=== PATIENT | female | born 1940 | race Caucasian/White ===

== ENCOUNTER 2018-08-21 13:03 | Emergency (ER) | payer MEDICARE, OTHER ==
--- NOTE | 2018-08-21 14:14 | RAD ---
4 views left knee. HISTORY: Left knee pain AP, lateral and both oblique views left knee obtained. 4 views left knee demonstrates no evidence of left knee fractures, subluxations or bony lesions. IMPRESSION: Normal 4 views left knee.
== END 2018-08-21 15:05 | disposition home or self-care (01) ==
LOC: ERS 13:03
DX: M70.52 Other bursitis of knee, left knee (principal); E03.9 Hypothyroidism, unspecified; K21.9 Gastro-esophageal reflux disease without esophagitis; Z79.899 Other long term (current) drug therapy; X50.1XXA Overexertion from prolonged static or awkward postures, initial encounter

== ENCOUNTER 2019-06-09 06:49 | Emergency (ER) | payer MEDICARE, OTHER ==
[2019-06-09] MEDS ORDERED: Ondansetron PF 4 MG/2 ML Vial ONE (07:34)
[2019-06-09 08:02] LABS: #Lymphocytes 0.9 thou/uL (1.20-3.40); #Monocytes 0.3 thou/uL (0.11-0.59); #Neutrophils 9.8 thou/uL (1.40-6.50); %Basophils 0.4 % (0.0-1.0); %Eosinophils 0.2 % (0.0-10.0); %Lymphocytes 7.7 % (21.0-51.0); %Monocytes 2.4 % (0.0-10.0); %Neutrophils 89.2 % (42.0-75.0); Hemoglobin 14.1 g/dL (12.0-16.0); Mean Corpuscular HGB CONC 33.6 g/dL (32.0-36.0); Mean Corpuscular Hemoglobin 30.9 pg (27.0-31.0); Mean Platelet Volume 7.4 fL (7.4-10.4); Platelet Count 240 thou/uL (130-400); RBC Distribution Width 12.3 % (11.5-14.5); Red Blood Cell (RBC) Count 4.56 mill/uL (4.20-5.40)
[2019-06-09 08:26] LABS: ALT (SGPT) 15 U/L (8-55); AST (SGOT) 23 U/L (5-34); Albumin 4.8 g/dL (3.4-4.8); Alkaline Phosphatase 71 U/L (40-110); Anion Gap 15 mmol/L (10-20); BUN (Urea Nitrogen) 20 mg/dL (9.8-20.1); Bilirubin, Total 0.6 mg/dL (0.2-1.2); Calc. Creatinine Clearance 0 mL/min (70-130); Calcium 9.9 mg/dL (7.8-10.44); Carbon Dioxide 25 mmol/L (23-31); Chloride 102 mmol/L (98-107); Estimated GFR-MDRD 51; Globulin 2.7 g/dL (2.4-3.5); Glucose 129 mg/dL (83-110); Protein, Total 7.5 g/dL (6.0-8.3); Sodium 138 mmol/L (136-145)
--- NOTE | 2019-06-09 08:31 | RAD ---
EXAM: XR Abdomen 2 View/1 View Cxr PROVIDED CLINICAL HISTORY: Abdominal pain, nausea, vomiting, and constipation. COMPARISON: Chest x-ray on 10/29/2017. FINDINGS: Cardiac silhouette and pulmonary vasculature are within normal limits. The lungs are clear. No free intraperitoneal air is seen beneath the hemidiaphragms. There is relative paucity of bowel ga s, but the bowel gas pattern is overall nonspecific. Surgical clips overlie the right upper quadrant. No suspicious calcifications are seen. Mild degenerative change are seen at the pubic symphysis. There is right hip osteoarthritis. There is mild left convex curvature of the thoracolumbar spine. IMPRESSION: 1. Nonspecific bowel gas pattern.
== END 2019-06-09 10:40 | disposition home or self-care (01) ==
LOC: ERS 06:49
DX: A08.4 Viral intestinal infection, unspecified (principal); E03.9 Hypothyroidism, unspecified; K21.9 Gastro-esophageal reflux disease without esophagitis
CPT/HCPCS: 74022; 80053; 83605; 84484; 85025; 93005; 96361; 96374; J2405